=== PATIENT | male | born 1995 | race Caucasian/White ===

== ENCOUNTER 2022-03-30 21:36 | Emergency (ER) | payer BC ==
[~2022-03-30] VITALS: Ht 188 cm; Wt 84.8 kg
[2022-03-30] MEDS ORDERED: LIDOCAINE HCL/EPINEPHRINE 1%-EPI 1:100,000 20 ML VIAL INFIL ONE (23:30)
[2022-03-30] MEDS ORDERED: BACITRACIN ZINC OINT UDPKT TOP ONE (23:30)
[2022-03-31 00:23] VITALS: BP 118/78
== END 2022-03-31 00:25 | disposition home or self-care (01) ==
LOC: ER 22:28
DX: S91.312A Laceration without foreign body, left foot, initial encounter (principal); Y93.18 Activity, surfing, windsurfing and boogie boarding; Y92.832 Beach as the place of occurrence of the external cause
CPT/HCPCS: 99282; J3490; Z7610